=== PATIENT | male | born 2000 | race Caucasian/White ===

== ENCOUNTER 2019-06-16 03:21 | Emergency (ER) | payer SELFPAY ==
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
== END 2019-06-16 04:15 ==
LOC: ERS 03:21
DX: S09.90XA Unspecified injury of head, initial encounter (principal); F10.129 Alcohol abuse with intoxication, unspecified; F17.200 Nicotine dependence, unspecified, uncomplicated; Y04.0XXA Assault by unarmed brawl or fight, initial encounter
CPT/HCPCS: 70450; 72125